=== PATIENT | male | born 1975 | race Caucasian/White ===

== ENCOUNTER 2017-12-07 07:08 | Emergency (ER) | payer BC, OTHER ==
[~2017-12-07] VITALS: Ht 185.4 cm; Wt 92.9 kg
[2017-12-07 07:11] VITALS: TEMP 36.7; Ht 185.4 cm; Wt 92.9 kg
--- NOTE | 2017-12-07 07:19 | EMERGENCY ROOM VISIT NOTE ---
ED Visit Note First contact with patient: 07:15 CHIEF COMPLAINT: Chest pain HISTORY OF PRESENTING ILLNESS: This is a 42-year-old male who presents to the emergency department with complaint of chest pain that started yesterday. Patient states that pain has been in the middle of his chest, he describes as a tightness, it is worse with exertion, better with rest, currently rates as 2/ 10. He did not take any medications for his symptoms. The patient states that the pain seemed to get better last night, but he woke up around 5 AM today still feeling unwell and having this chest pressure. He states that he began feeling fatigued and having nausea and some shortness of breath with exertion 2 days ago. He has also had some intermittent cold sweats at times. He also states that he has been burping a lot and feeling gassy. He saw his PCP yesterday evening, states that he had an EKG that was normal, but was told to go to the ER if his symptoms persisted. He states that he is usually fairly active, walks a lot on campus, and states that he started working out about a month ago and has been exercising at least 3 times a week without difficulty. He states that he has been extremely busy with work past few weeks due to the end of sem, as he is a professor of chemistry. He denies any symptoms of fevers or chills, URI symptoms or cough, headaches, dizziness or syncope, back pain, abdominal pain, vomiting, diarrhea, urinary symptoms, or unusual rash. He denies any recent travel or immobilization, injury, leg pain or swelling, or history of blood clots. His chest pain is not worse with taking a deep breath or lying flat. He denies any history of hypertension or hypercholesterolemia, he is not diabetic. He does not smoke or use tobacco products. He denies any family history of early cardiac disease or stroke. He does report a history of GERD, but states that this feels different. REVIEW OF SYSTEMS: A complete 10 point review of systems was reviewed with the patient with pertinent positives and negatives as per history of present illness. All else were negative. PAST MEDICAL HISTORY: GERD SOCIAL HISTORY: Lives at home with his . He is a [employer] professor. He denies tobacco use. ALLERGIES: Reviewed in chart. PHYSICAL EXAM: CONSTITUTIONAL: Pleasant and cooperative. No acute distress. Well appearing and well nourished. HEENT: Normocephalic, atraumatic. Pupils equal, round and reactive to light, EOMI. TMs normal. Pharynx normal. NECK: Supple, full active range of motion without discomfort. No cervical adenopathy. No JVD. RESPIRATORY: Clear to auscultation bilaterally with no wheezing, crackles, rhonchi or stridor. Equal expansion bilaterally. CARDIOVASCULAR: Regular rate and rhythm with no murmurs, rubs or gallops. Normal peripheral perfusion. No edema. GASTROINTESTINAL: Soft, nontender, nondistended. No palpable masses or HSM. Bowel sounds present in all quadrants. MUSCULOSKELETAL: Full range of motion of all joints without discomfort. INTEGUMENTARY: No rash or other significant dermatologic conditions noted. NEUROLOGIC: Alert and oriented X 4 with normal affect. Normal strength and sensation in all 4 extremities. No focal neurologic deficits noted. Normal speech. Normal gait observed. ED COURSE AND MEDICAL DECISION MAKING: CC: Patient presenting with complaint of chest pain DIFFERENTIAL DIAGNOSIS: Includes, but not limited to acute coronary syndrome, pulmonary embolism, aortic dissection, pneumothorax, pericarditis, anxiety, musculoskeletal pain, GERD, costochondritis, pneumonia, among others. INTERPRETATION OF LABS: No leukocytosis, no anemia, no significant electrolyte abnormalities, normal renal function, mildly elevated T bili, liver enzymes otherwise normal, normal lipase. Initial troponin is negative. Pro-BNP WNL. D -dimer is negative. Coagulation factors within normal limits. IMAGIN view chest x-ray reviewed by myself and radiologist and shows no active disease in the chest by my interpretation. EXERCISE STRESS ECHO: Interpretation Summary * Name: SHIRLEY MUNIZ Study Date: 12/07/2017 01:00 PM BP: 146/74 mmHg * Patient Location: C.EDB HR: 54 * : 1975 (M/d/yyyy) Gender: Male Height: 72 in * Age: 42 yrs Ethnicity: CA Weight: 204 lb * Ordering Physician: Sharon Brandt * Performed By: Robyn Lloyd RDCS * * Reason For Study: CHEST PAIN * BSA: 2.1 m2 * -- Conclusions -- * Left ventricular systolic function is normal. * Normal diastolic function * Diagnostic exercise echocardiogram without evidence of inducible ischemia Procedure Details * ECHOEX, CPT #[id number] * ECHO DOPPLER, CPT #[id number] * ECHO COLOR FLOW, CPT #[id number] Left Ventricular Findings with Stress * Diagnostic exercise echocardiogram without evidence of inducible ischemia Left Ventricle * The left ventricle is normal in size. * There is normal left ventricular wall thickness. * Ejection Fraction = 65-70%. * Left ventricular systolic function is normal. * Normal diastolic function * The left ventricular wall motion is normal at rest. Right Ventricle * The right ventricle is normal in size and function. * The right ventricular systolic function is normal as assessed by tricuspid annular plane systolic excursion (TAPSE) (normal >1.5 cm). Atria * The left atrial size is normal. * Right atrial size is normal. Mitral Valve * The mitral valve anatomy is normal. * There is trace mitral regurgitation. Tricuspid Valve * The tricuspid valve is not well visualized, but is grossly normal. * There is trace tricuspid regurgitation. Aortic Valve * The aortic valve is normal in structure and function. * The aortic valve is trileaflet. * No hemodynamically significant valvular aortic stenosis. * There is no significant aortic regurgitation. Pulmonic Valve * The pulmonic valve leaflets are thin and pliable; valve motion is normal. * Trace pulmonic valvular regurgitation. Great Vessels * The aortic root is normal size. Pericardium * There is no pericardial effusion. Stress Parameters * Baseline EKG was normal sinus with nonspecific ST and T-wave changes in inferolateral leads * With significant worsening of the T-wave inversions during exercise without significant ST segment depression * Rest heart rate was '54' BPM. * Rest blood pressure was '146/74' * Maximum heart rate achieved was 169 bpm. * Maximum heart rate was 95 % of maximum age-predicted heart rate. * Maximum blood pressure was '197/51' * Total exercise time was '9:35' * Maximum exercise MET level achieved was '11.00' METS * Maximum treadmill speed was '4.20' miles per hour. * Maximum treadmill elevation was '16.00'% grade. * Exercise was terminated due to 'Target heart rate achieved.' * No symptoms during exercise. Target heart rate achieved. Left Ventricular Findings with Stress * Baseline EKG was slightly abnormal There was significant T-wave inversion without overt ST segment depression at peak exertion Baseline echocardiographic images were normal There was normal augmentation of all segments without development of wall motion abnormalities at peak exertion Baseline blood pressure was high with normal blood pressure response to exercise No symptoms Osborn treadmill score: 9.5 (low risk) EKG: Shows normal sinus rhythm with sinus arrhythmia and a rate of 67 bpm, nonspecific T-wave abnormalities noted in the inferior leads by my interpretation. No previous EKG available for comparison. MEDICATION RECONCILIATION: I attest that I have personally reviewed the patient 's current medication list. INITIAL VITAL SIGNS REVIEW: I reviewed the patient's initial vital signs and interpret them as follows: T: Afebrile; BP: Hypertensive; HR: Within normal limits; RR: Within normal limits; Pulse Ox: Within normal limits on room air. Blood pressure screening: The patient was found to have an elevated blood pressure, which was felt to be situational. SUMMARY: Patient was evaluated at bedside, history and physical exam performed. Patient is alert and oriented, no acute distress, resting calmly in stretcher. Patient states that his chest pain is very minimal, rating only a 1-2/10, substernal and does not radiate. Heart sounds are normal, lungs are clear, normal peripheral perfusion with no edema. EKG was reviewed at bedside, noting normal sinus rhythm with no acute ischemic changes. Orders were placed at bedside for labs, UA, chest x-ray to evaluate for cardiopulmonary disease. Patient discussed with Dr. Patel, who agrees with my assessment and plan. Labs and imaging reviewed as above. Patient is low risk for PE by Wells criteria, d-dimer is negative Patient with heart score of 1, based off of exertional symptoms. Troponin is negative x2. I spoke with Dr. Han, meatcutter, who agrees with plans to do an exercise stress echo today for chest pain rule out. Stress echo results reviewed, normal with no evidence of ischemia. Patient reassessed multiple times throughout ED stay, he states that his chest pain remains gone, and he has been feeling well since the stress test. Patient was updated on all results and plan for discharge, he was encouraged to follow closely with his primary care provider. Patient was also given strict return precautions should his symptoms worsen, he verbalized understanding. Patient was discharged home from the ED in stable condition and ambulatory. Current/Historical Medications Scheduled Fiber (Fiber Adult Gummies 2 gm), 1 TAB PO BID Fluticasone Propionate (Nasal) (Flonase Allergy Relief ), 1 SPRAY XAVIER DAILY Allergies Coded Allergies: Codeine (Unverified Allergy, Unknown, nauseous, 12/07/17) Vital Signs Date Time Temp Pulse Resp B/P (MAP) Pulse Ox O2 Delivery O2 Flow Rate FiO2 12/07/17 16:04 58 18 124/74 97 12/07/17 14:20 82 18 134/82 97 Room Air 12/07/17 12:24 74 12/07/17 12:20 63 18 140/72 98 Room Air 12/07/17 10:33 106 16 158/97 94 Room Air 12/07/17 09:07 61 16 124/82 12/07/17 07:33 97 Room Air 12/07/17 07:33 97 Room Air 12/07/17 07:23 62 12/07/17 07:11 36.7 69 18 144/86 99 Room Air Laboratory Results 12/07/17 07:25 Red Blood Count 4.95, Mean Corpuscular Volume 91.1, Mean Corpuscular Hemoglobin 32.3, Mean Corpuscular Hemoglobin Concent 35.5, Mean Platelet Volume 9.5, Neutrophils (%) (Auto) 58.3, Lymphocytes (%) (Auto) 31.2, Monocytes (%) (Auto) 8.7, Eosinophils (%) (Auto) 1.1, Basophils (%) (Auto) 0.5, Neutrophils # (Auto) 3.61, Lymphocytes # (Auto) 1.93, Monocytes # (Auto) 0.54, Eosinophils # (Auto) 0.07, Basophils # (Auto) 0.03 12/07/17 07:25 Test 12/07/17 07:25 12/07/17 10:57 White Blood Count 6.19 K/uL (4.8-10.8) Red Blood Count 4.95 M/uL (4.7-6.1) Hemoglobin 16.0 g/dL (14.0-18.0) Hematocrit 45.1 % (42-52) Mean Corpuscular Volume 91.1 fL (80-100) Mean Corpuscular Hemoglobin 32.3 pg (25-34) Mean Corpuscular Hemoglobin Concent 35.5 g/dl (32-36) Platelet Count 228 K/uL (130-400) Mean Platelet Volume 9.5 fL (7.4-10.4) Neutrophils (%) (Auto) 58.3 % Lymphocytes (%) (Auto) 31.2 % Monocytes (%) (Auto) 8.7 % Eosinophils (%) (Auto) 1.1 % Basophils (%) (Auto) 0.5 % Neutrophils # (Auto) 3.61 K/uL (1.4-6.5) Lymphocytes # (Auto) 1.93 K/uL (1.2-3.4) Monocytes # (Auto) 0.54 K/uL (0.11-0.59) Eosinophils # (Auto) 0.07 K/uL (0-0.5) Basophils # (Auto) 0.03 K/uL (0-0.2) RDW Standard Deviation 42.1 fL (36.4-46.3) RDW Coefficient of Variation 12.7 % (11.5-14.5) Immature Granulocyte % (Auto) 0.2 % Immature Granulocyte # (Auto) 0.01 K/uL (0.00-0.02) Prothrombin Time 10.6 SECONDS (9.0-12.0) Prothromb Time International Ratio 1.0 (0.9-1.1) Activated Partial Thromboplast Time 26.4 SECONDS (21.0-31.0) Partial Thromboplastin Ratio 1.0 D-Dimer 220 ug/L FEU (0-500) Anion Gap 6.0 mmol/L (3-11) Est Creatinine Clear Calc Drug Dose 105.5 ml/min Estimated GFR () 103.9 Estimated GFR (Non- 89.6 BUN/Creatinine Ratio 7.4 (10-20) Calcium Level 9.3 mg/dl (8.5-10.1) Total Bilirubin 1.1 mg/dl (0.2-1) Direct Bilirubin 0.2 mg/dl (0-0.2) Aspartate Amino Transf (AST/SGOT) 19 U/L (15-37) Alanine Aminotransferase (ALT/SGPT) 30 U/L (12-78) Alkaline Phosphatase 82 U/L (45-117) Pro-B-Type Natriuretic Peptide 48 pg/ml (0-450) Total Protein 8.6 gm/dl (6.4-8.2) Albumin 4.5 gm/dl (3.4-5.0) Lipase 64 U/L (73-393) Troponin I < 0.015 ng/ml (0-0.045) Medications Administered Medications (Trade) Dose Ordered Sig/Wilda Route Start Time Stop Time Status Last Admin Dose Admin Aspirin (Aspirin Chew) 324 mg NOW STAT PO 12/07/17 07:37 12/07/17 07:41 DC 12/07/17 07:45 324 MG Departure Information Impression Primary Impression: Non-cardiac chest pain Dispostion Home / Self-Care Condition GOOD Referrals No Doctor, Assigned (PCP) Patient Instructions ED Chest Pain NonCardiac, Exercise Stress Test, [facility] Additional Instructions You have been treated in the Emergency Department for chest pain. Laboratory results and imaging studies have ruled out any emergent causes for your symptoms which would warrant admission or surgery. Your exercise stress echocardiogram today is normal. For pain control, you can use the following glok-iop-lckezkr medicines (if >12 yo): - Regular strength (325mg/tab) Tylenol (acetaminophen) 2 tabs every 4-6 hours as needed. Do not exceed 10 tablets in a 24 hour period. Avoid taking more than 3000 mg of Tylenol per day. This includes any other sources of acetaminophen you may take on a regular basis. - Regular strength (200 mg/tab) Advil (ibuprofen) 3 tabs every 6-8 hours as needed. Do not exceed a dose of 2400 mg per day. Drink plenty of fluids to stay well hydrated. Please follow-up with your Primary Care Provider in the next few days for recheck. Return to the emergency department for severe worsening chest or back pain, worsening shortness of breath or inability to catch your breath, worsening nausea/vomiting, vomiting blood, fevers > 101.5, severe dizziness or passing out , or any other concerns. Work Instructions Return To Work: 2 days
[2017-12-07 07:33] VITALS: O2SAT 97
[2017-12-07 07:37] LABS: BASO % 0.5 %; BASO ABS # 0.03 K/uL (0-0.2); EOS % 1.1 %; EOS ABS # 0.07 K/uL (0-0.5); HEMATOCRIT 45.1 % (42-52); IG# 0.01 K/uL (0.00-0.02); LYMPH % 31.2 %; LYMPH ABS # 1.93 K/uL (1.2-3.4); MEAN CELL VOLUME 91.1 fL (80-100); MEAN CORPUSCULAR HEMOGLOBIN 32.3 pg (25-34); MEAN CORPUSCULAR HGB CONC 35.5 g/dl (32-36); MEAN PLATELET VOLUME 9.5 fL (7.4-10.4); MONO % 8.7 %; MONO ABS # 0.54 K/uL (0.11-0.59); NEUT % 58.3 %; NEUT ABS # 3.61 K/uL (1.4-6.5); PLATELET COUNT 228 K/uL (130-400); RED CELL DISTRIBUTION WIDTH CV 12.7 % (11.5-14.5); RED CELL DISTRIBUTION WIDTH SD 42.1 fL (36.4-46.3); WHITE BLOOD COUNT 6.19 K/uL (4.8-10.8)
[2017-12-07] MEDS ORDERED: ASPIRIN 81 MG CHEW PO STA (07:37)
[2017-12-07 07:46] LABS: PTT PATIENT 26.4 SECONDS (21.0-31.0)
[2017-12-07] MEDS ORDERED: FLUT1SPR12 NAE (07:52)
[2017-12-07] MEDS ORDERED: FIBE1CHW8 PO (07:52)
[2017-12-07 07:53] LABS: ALBUMIN 4.5 gm/dl (3.4-5.0); ALT/SGPT 30 U/L (12-78); AST/SGOT 19 U/L (15-37); BLOOD UREA NITROGEN 8 mg/dl (7-18); CALCIUM 9.3 mg/dl (8.5-10.1); CARBON DIOXIDE 26 mmol/L (21-32); CREATININE 1.02 mg/dl (0.60-1.40); GLUCOSE 92 mg/dl (70-99); LIPASE 64 U/L (73-393); POTASSIUM 3.7 mmol/L (3.5-5.1); SODIUM 139 mmol/L (136-145)
[2017-12-07 07:59] LABS: ALKALINE PHOSPHATASE 82 U/L (45-117); TOTAL PROTEIN 8.6 gm/dl (6.4-8.2)
--- NOTE | 2017-12-07 08:53 | DIAGNOSTIC IMAGING REPORT ---
SINGLE VIEW CHEST CLINICAL HISTORY: Atypical chest pain. FINDINGS: An AP, portable, upright chest radiograph is compared to study dated 07/20/2016. The cardiomediastinal silhouette is unremarkable. The lungs and pleural spaces are clear. No pneumothorax is seen. The bony thorax is grossly intact. IMPRESSION: No active disease in the chest. Electronically signed by: Iglesia Austin M.D. 12/07/2017 7:30 AM Dictated Date/Time: 12/07/2017 7:30 AM
--- NOTE | 2017-12-07 14:40 | EXERCISE STRESS ECHO ---
*NOTICE TO RECEIVING CONSTITUTION PARTY AGENCY This information is strictly Confidential and protected under [place] law. [place] law prohibits you from making any further disclosure of this information unless further disclosure is expressly permitted by the written consent of the person to whom it pertains or is authorized by law. A general authorization for the release of medical or other information is not sufficient for this purpose. Hospital accepts no responsibility if the information is made available to any other person, INCLUDING THE PATIENT. Interpretation Summary * Name: SHIRLEY MUNIZ Study Date: 12/07/2017 01:00 PM BP: 146/74 mmHg * Patient Location: .ED HR: 54 * : 1975 (M/d/yyyy) Gender: Male Height: 72 in * Age: 42 yrs Ethnicity: CA Weight: 204 lb * Ordering Physician: Sharon Brandt * Performed By: Robyn Lloyd RDCS * * Reason For Study: CHEST PAIN * BSA: 2.1 m2 * -- Conclusions -- * Left ventricular systolic function is normal. * Normal diastolic function * Diagnostic exercise echocardiogram without evidence of inducible ischemia Procedure Details * ECHOEX, CPT #[id number] * ECHO DOPPLER, CPT #[id number] * ECHO COLOR FLOW, CPT #[id number] Left Ventricular Findings with Stress * Diagnostic exercise echocardiogram without evidence of inducible ischemia Left Ventricle * The left ventricle is normal in size. * There is normal left ventricular wall thickness. * Ejection Fraction = 65-70%. * Left ventricular systolic function is normal. * Normal diastolic function * The left ventricular wall motion is normal at rest. Right Ventricle * The right ventricle is normal in size and function. * The right ventricular systolic function is normal as assessed by tricuspid annular plane systolic excursion (TAPSE) (normal >1.5 cm). Atria * The left atrial size is normal. * Right atrial size is normal. Mitral Valve * The mitral valve anatomy is normal. * There is trace mitral regurgitation. Tricuspid Valve * The tricuspid valve is not well visualized, but is grossly normal. * There is trace tricuspid regurgitation. Aortic Valve * The aortic valve is normal in structure and function. * The aortic valve is trileaflet. * No hemodynamically significant valvular aortic stenosis. * There is no significant aortic regurgitation. Pulmonic Valve * The pulmonic valve leaflets are thin and pliable; valve motion is normal. * Trace pulmonic valvular regurgitation. Great Vessels * The aortic root is normal size. Pericardium * There is no pericardial effusion. Stress Parameters * Baseline EKG was normal sinus with nonspecific ST and T-wave changes in inferolateral leads * With significant worsening of the T-wave inversions during exercise without significant ST segment depression * Rest heart rate was '54' BPM. * Rest blood pressure was '146/74' * Maximum heart rate achieved was 169 bpm. * Maximum heart rate was 95 % of maximum age-predicted heart rate. * Maximum blood pressure was '197/51' * Total exercise time was '9:35' * Maximum exercise MET level achieved was '11.00' METS * Maximum treadmill speed was '4.20' miles per hour. * Maximum treadmill elevation was '16.00'% grade. * Exercise was terminated due to 'Target heart rate achieved.' * No symptoms during exercise. Target heart rate achieved. Left Ventricular Findings with Stress * Baseline EKG was slightly abnormal There was significant T-wave inversion without overt ST segment depression at peak exertion Baseline echocardiographic images were normal There was normal augmentation of all segments without development of wall motion abnormalities at peak exertion Baseline blood pressure was high with normal blood pressure response to exercise No symptoms Osborn treadmill score: 9.5 (low risk) MMode 2D Measurements and Calculations IVSd 1.2 cm IVSs 1.6 cm LVIDd 5.0 cm LVIDs 3.1 cm LVPWd 1.1 cm LVPWs 1.5 cm IVS/LVPW 1.1 FS 38.2 % EDV(Teich) 120.1 ml ESV(Teich) 38.2 ml EF(Teich) 68.2 % EDV(cubed) 127.5 ml ESV(cubed) 30.0 ml EF(cubed) 76.4 % % IVS thick 40.1 % % LVPW thick 39.5 % LV mass(C)d 214.9 grams LV mass(C)dI 100.0 grams/m\S\2 LV mass(C)s 177.9 grams LV mass(C)sI 82.8 grams/m\S\2 SV(Teich) 81.9 ml SI(Teich) 38.1 ml/m\S\2 SV(cubed) 97.5 ml SI(cubed) 45.4 ml/m\S\2 ACS 1.7 cm LA dimension 3.7 cm asc Aorta Diam 2.8 cm LVOT diam 2.0 cm LVOT area 3.0 cm\S\2 LVAd ap4 37.6 cm\S\2 LVLd ap4 8.8 cm EDV(MOD-sp4) 130.7 ml EDV(sp4-el) 135.7 ml LVAs ap4 17.6 cm\S\2 LVLs ap4 6.7 cm ESV(MOD-sp4) 42.7 ml ESV(sp4-el) 39.3 ml EF(MOD-sp4) 67.3 % EF(sp4-el) 71.1 % LVAd ap2 33.7 cm\S\2 LVLd ap2 8.7 cm EDV(MOD-sp2) 106.9 ml EDV(sp2-el) 110.0 ml LVAs ap2 15.1 cm\S\2 LVLs ap2 6.1 cm ESV(MOD-sp2) 32.5 ml ESV(sp2-el) 32.1 ml EF(MOD-sp2) 69.6 % EF(sp2-el) 70.8 % LVLd %diff -1.08 % EDV(MOD-bp) 119.7 ml LVLs %diff -10.91 % ESV(MOD-bp) 38.8 ml EF(MOD-bp) 67.6 % SV(MOD-sp4) 87.9 ml SI(MOD-sp4) 40.9 ml/m\S\2 SV(MOD-sp2) 74.5 ml SI(MOD-sp2) 34.7 ml/m\S\2 SV(MOD-bp) 81.0 ml SI(MOD-bp) 37.7 ml/m\S\2 SV(sp4-el) 96.5 ml SI(sp4-el) 44.9 ml/m\S\2 SV(sp2-el) 77.9 ml SI(sp2-el) 36.3 ml/m\S\2 Doppler Measurements and Calculations MV E max jamie 60.9 cm/sec MV A max jamie 45.8 cm/sec MV E/A 1.3 MV dec time 0.15 sec Ao V2 max 129.4 cm/sec Ao max PG 6.7 mmHg Ao max PG (full) 2.7 mmHg LUCILLE(V,A) 2.4 cm\S\2 LUCILLE(V,D) 2.4 cm\S\2 LV V1 max PG 4.0 mmHg LV V1 max 100.5 cm/sec PA V2 max 72.3 cm/sec PA max PG 2.1 mmHg PI end-d jamie 97.9 cm/sec
[2017-12-07 16:04] VITALS: BP 124/74; PULSE 58; O2SAT 97
== END 2017-12-07 16:14 | disposition home or self-care (01) ==
LOC: C.EDB 07:10
DX: R07.89 Other chest pain (principal); R06.02 Shortness of breath; Z88.5 Allergy status to narcotic agent

== ENCOUNTER 2018-03-25 22:12 | Inpatient (IN) | payer OTHER ==
[~2018-03-25] VITALS: Ht 185.4 cm; Wt 86.8 kg
[~2018-03-25 22:12] MED LIST: FIBE1CHW8 PO; FLUT1SPR12 NAE
[2018-03-25] MEDS ORDERED: DILTIAZEM HCL 5 MG/ML 5 ML VIAL IV STA ×2 (22:24→23:28)
[2018-03-25] MEDS ORDERED: SODIUM CHLORIDE 0.9% 1000ML 1,000 ML IV STA (22:24)
[2018-03-25] MEDS ORDERED: DILTIAZEM BOLUS / DRIP IV STA (22:31)
[2018-03-25] MEDS ORDERED: PRT/20 PO (22:42)
[2018-03-25] MEDS ORDERED: DILTIAZEM HCL INJ 125 MG in DEXTROSE 5% 100ML IV PRN (22:45)
[2018-03-25 22:50] LABS: BASO % 0.4 %; BASO ABS # 0.04 K/uL (0-0.2); EOS % 3.8 %; EOS ABS # 0.34 K/uL (0-0.5); HEMATOCRIT 45.9 % (42-52); HEMOGLOBIN 16.7 g/dL (14.0-18.0); IG# 0.02 K/uL (0.00-0.02); LYMPH ABS # 4.02 K/uL (1.2-3.4); MEAN CELL VOLUME 90.2 fL (80-100); MEAN CORPUSCULAR HEMOGLOBIN 32.8 pg (25-34); MEAN CORPUSCULAR HGB CONC 36.4 g/dl (32-36); MEAN PLATELET VOLUME 10.6 fL (7.4-10.4); MONO % 11.2 %; NEUT % 39.4 %; NEUT ABS # 3.52 K/uL (1.4-6.5); PLATELET COUNT 221 K/uL (130-400); RED CELL DISTRIBUTION WIDTH SD 39.6 fL (36.4-46.3); WHITE BLOOD COUNT 8.94 K/uL (4.8-10.8)
[2018-03-25 23:01] LABS: PTT PATIENT 26.3 SECONDS (21.0-31.0)
--- NOTE | 2018-03-25 23:04 | DIAGNOSTIC IMAGING REPORT ---
CHEST ONE VIEW PORTABLE CLINICAL HISTORY: Chest pain. COMPARISON STUDY: Chest radiograph December 07, 2017. FINDINGS: Lung volumes are normal. There is no pneumothorax or pleural effusion. There is no consolidation or evidence for pulmonary edema. Cardiac size is normal. Mediastinal contours are normal. The appearance of the chest is unchanged. IMPRESSION: No acute cardiopulmonary findings. Electronically signed by: Amador Vernon M.D. 03/25/2018 11:03 PM Dictated Date/Time: 03/25/2018 11:02 PM
[2018-03-25 23:19] LABS: ALBUMIN 4.7 gm/dl (3.4-5.0); ALKALINE PHOSPHATASE 97 U/L (45-117); ALT/SGPT 23 U/L (12-78); AST/SGOT 22 U/L (15-37); BLOOD UREA NITROGEN 8 mg/dl (7-18); CALCIUM 9.5 mg/dl (8.5-10.1); CARBON DIOXIDE 24 mmol/L (21-32); GLUCOSE 97 mg/dl (70-99); LIPASE 74 U/L (73-393); POTASSIUM 3.1 mmol/L (3.5-5.1); SODIUM 135 mmol/L (136-145); TOTAL PROTEIN 8.6 gm/dl (6.4-8.2)
[2018-03-25] MEDS ORDERED: POTASSIUM CHLORIDE 10 MEQ TABCR PO STA (23:28)
[2018-03-25] MEDS ORDERED: DILTIAZEM HCL 30 MG TAB PO STA (23:40)
[2018-03-26] VITALS (7 sets, daily range): BP systolic 109–132; BP diastolic 64–80; PULSE 53–66; TEMP 36.4–37.1; O2SAT 96–100; Ht 185.4 cm; Wt 86.8 kg
--- NOTE | 2018-03-26 00:35 | EMERGENCY ROOM VISIT NOTE ---
History First contact with patient: 22:17 Chief Complaint: TACHYCARDIA Stated Complaint: HEART RATE HIGH AND VARIABLE Nursing Triage Summary: A fib with RVR History of Present Illness The patient is a 42 year old male who presents to the Emergency Room with complaints of palpitations for the past few hours. Patient states a few months ago he had a similar episode. Patient states earlier this year he had a normal stress echo. Patient's chancellor is Dr. Wilcox. Patient was told by his chancellor to double up on his Protonix as his chest pains most likely is from reflux. Patient denies prior history of atrial fibrillation or other heart dysrhythmias. Patient feels slightly short of breath. Patient denies chest pain, fever, chills, cough, congestion, abdominal pain, recent illness excessive caffeine use. Patient normally has 1 cup of coffee a day. He states he has been underneath more stress lately. He has not been sleeping well. No alcohol or drug use. Patient denies history of blood pressure cholesterol or diabetes. Patient states last time when he saw his family care doctor his TSH was slightly elevated. Review of Systems An 10 system review of systems was completed with positives and pertinent negatives listed in the HPI. Past Medical/Surgical History Medical Problems: (1) New onset atrial fibrillation GERD Social History Smoking Status: Never Smoker Smokeless Tobacco Use: No Alcohol Use: none Drug Use: none Marital Status: Housing Status: lives with family Occupation Status: employed Current/Historical Medications Scheduled Fluticasone Propionate (Nasal) (Flonase Allergy Relief ), 1 SPRAY XAVIER DAILY Pantoprazole (Protonix), 20 MG PO BID Physical Exam Vital Signs Date Time Temp Pulse Resp B/P (MAP) Pulse Ox O2 Delivery O2 Flow Rate FiO2 03/25/18 23:46 107 12 128/85 99 Room Air 03/25/18 23:40 108 03/25/18 23:32 89 11 98 03/25/18 23:31 128/68 03/25/18 23:17 100 5 97 03/25/18 23:16 140/75 03/25/18 23:02 136 20 03/25/18 23:01 137/77 03/25/18 23:00 118 18 137/77 100 Room Air 03/25/18 22:59 108 18 148/110 99 Room Air 03/25/18 22:58 148/110 03/25/18 22:51 122 99 03/25/18 22:48 99 Room Air 03/25/18 22:47 112 19 100 03/25/18 22:42 98 14 99 03/25/18 22:33 134/82 99 03/25/18 22:30 99 Room Air 03/25/18 22:27 146 14 03/25/18 22:25 178 03/25/18 22:14 36.8 88 18 144/85 99 Room Air Physical Exam VITALS: Vitals are noted on the nurse's note and reviewed by myself. Vital signs tachycardic. GENERAL: Pleasant male, in no acute distress, nondiaphoretic, well-developed well-nourished. SKIN: The skin was without rashes, erythema, edema, or bruising. There is no tenting of the skin. Capillary reflex less than 2 seconds. HEAD: Normocephalic atraumatic. EARS: External auditory canals clear, tympanic membranes pearly ramos without erythema or effusion bilaterally. EYES: Pupils equal round and reactive to light and accommodation. Conjunctivae without injection, sclerae without icterus. Extraocular movements intact. NOSE: Patent, turbinates without inflammation or discharge. MOUTH: Mucous membranes moist. Pharynx without erythema or exudate. Uvula midline. Airway patent. Tongue does not deviate. NECK: Supple without nuchal rigidity. No lymphadenopathy. No thyromegaly. Cervical spine is nontender. No JVD. HEART: Tachycardic irregularly irregular LUNGS: Clear to auscultation bilaterally without wheezes, rales or rhonchi. No retractions or accessory muscle use. ABDOMEN: Positive bowel sounds x 4. Normal tympanic percussion. Soft, nontender, without masses or organomegaly. Sandhu sign negative. No guarding or rebound tenderness. No CVA tenderness MUSCULOSKELETAL: No muscle atrophy, erythema, or edema noted. NEURO: Patient was alert and oriented to person place and time. Normal sensation to light and sharp touch. No focal neurological deficits. Medical Decision & Procedures Laboratory Results 03/25/18 22:30 Red Blood Count 5.09, Mean Corpuscular Volume 90.2, Mean Corpuscular Hemoglobin 32.8, Mean Corpuscular Hemoglobin Concent 36.4, Mean Platelet Volume 10.6, Neutrophils (%) (Auto) 39.4, Lymphocytes (%) (Auto) 45.0, Monocytes (%) (Auto) 11.2, Eosinophils (%) (Auto) 3.8, Basophils (%) (Auto) 0.4, Neutrophils # (Auto ) 3.52, Lymphocytes # (Auto) 4.02, Monocytes # (Auto) 1.00, Eosinophils # (Auto ) 0.34, Basophils # (Auto) 0.04 03/25/18 22:30 Test 03/25/18 22:30 White Blood Count 8.94 K/uL (4.8-10.8) Red Blood Count 5.09 M/uL (4.7-6.1) Hemoglobin 16.7 g/dL (14.0-18.0) Hematocrit 45.9 % (42-52) Mean Corpuscular Volume 90.2 fL (80-100) Mean Corpuscular Hemoglobin 32.8 pg (25-34) Mean Corpuscular Hemoglobin Concent 36.4 g/dl (32-36) Platelet Count 221 K/uL (130-400) Mean Platelet Volume 10.6 fL (7.4-10.4) Neutrophils (%) (Auto) 39.4 % Lymphocytes (%) (Auto) 45.0 % Monocytes (%) (Auto) 11.2 % Eosinophils (%) (Auto) 3.8 % Basophils (%) (Auto) 0.4 % Neutrophils # (Auto) 3.52 K/uL (1.4-6.5) Lymphocytes # (Auto) 4.02 K/uL (1.2-3.4) Monocytes # (Auto) 1.00 K/uL (0.11-0.59) Eosinophils # (Auto) 0.34 K/uL (0-0.5) Basophils # (Auto) 0.04 K/uL (0-0.2) RDW Standard Deviation 39.6 fL (36.4-46.3) RDW Coefficient of Variation 12.0 % (11.5-14.5) Immature Granulocyte % (Auto) 0.2 % Immature Granulocyte # (Auto) 0.02 K/uL (0.00-0.02) Prothrombin Time 10.7 SECONDS (9.0-12.0) Prothromb Time International Ratio 1.0 (0.9-1.1) Activated Partial Thromboplast Time 26.3 SECONDS (21.0-31.0) Partial Thromboplastin Ratio 1.0 Anion Gap 11.0 mmol/L (3-11) Est Creatinine Clear Calc Drug Dose 107.6 ml/min Estimated GFR () 106.4 Estimated GFR (Non- 91.8 BUN/Creatinine Ratio 8.3 (10-20) Calcium Level 9.5 mg/dl (8.5-10.1) Magnesium Level 2.0 mg/dl (1.8-2.4) Total Bilirubin 0.8 mg/dl (0.2-1) Direct Bilirubin 0.2 mg/dl (0-0.2) Aspartate Amino Transf (AST/SGOT) 22 U/L (15-37) Alanine Aminotransferase (ALT/SGPT) 23 U/L (12-78) Alkaline Phosphatase 97 U/L (45-117) Troponin I < 0.015 ng/ml (0-0.045) Total Protein 8.6 gm/dl (6.4-8.2) Albumin 4.7 gm/dl (3.4-5.0) Lipase 74 U/L (73-393) Thyroid Stimulating Hormone (TSH) 24.700 uIu/ml (0.300-4.500) Free Thyroxine 1.27 ng/dl (0.80-1.60) Medications Administered Medications (Trade) Dose Ordered Sig/Wilda Route Start Time Stop Time Status Last Admin Dose Admin Diltiazem HCl (Cardizem Inj) 20 mg NOW STAT IV 03/25/18 22:24 03/25/18 22:26 DC 03/25/18 22:37 20 MG Sodium Chloride 1,000 ml @ 999 mls/hr Q1H1M STAT IV 03/25/18 22:24 03/25/18 23:24 DC 03/25/18 22:37 999 MLS/HR Diltiazem HCl 125 mg/Dextrose 125 ml @ 0 mls/hr Q0M PRN IV 03/25/18 22:45 03/25/18 23:34 DC 03/25/18 22:42 10 MLS/HR Diltiazem HCl (Cardizem Inj) 25 mg NOW STAT IV 03/25/18 23:28 03/25/18 23:29 DC 03/25/18 23:34 25 MG Potassium Chloride (Klor-Con M10) 40 meq NOW STAT PO 03/25/18 23:28 03/25/18 23:29 DC 03/25/18 23:36 40 MEQ Diltiazem HCl (Cardizem Tab) 60 mg NOW STAT PO 03/25/18 23:40 03/25/18 23:41 DC 03/26/18 00:21 60 MG ED Course Prior records/ancillary studies reviewed. Triage Nursing notes reviewed. Additional history obtained from family. The patient's history was concerning for palpitations. Differential diagnosis: Etiologies such as premature contractions, electrolyte abnormality, cardiac dysrhythmia, thyroid dysfunction, pulmonary embolism, infection, gastrointestinal, as well as others were entertained. Physical examination: Benign as above. ER treatment provided: Cardizem with drip, IV fluids, potassium On reassessment the patient felt better. Diagnostic interpretation by me: Cardiac monitoring revealed A. fib with RVR The electrocardiogram was irregularly irregular with rate of 159, diffuse ST depression in the lateral leads most likely rate dependent, impression atrial fibrillation with RVR interpreted by myself. Repeat EKG shows A. fib with RVR with rate of 110 with resolution of the ST depressions The labs revealed elevated TSH. Normal T4. Hypokalemia this is replaced orally. Negative troponin Imaging studies: Chest x-ray as above. [~ rep ct add3]] CHEST ONE VIEW PORTABLE CLINICAL HISTORY: Chest pain. COMPARISON STUDY: Chest radiograph December 07, 2017. FINDINGS: Lung volumes are normal. There is no pneumothorax or pleural effusion. There is no consolidation or evidence for pulmonary edema. Cardiac size is normal. Mediastinal contours are normal. The appearance of the chest is unchanged. IMPRESSION: No acute cardiopulmonary findings. Electronically signed by: Amador Vernon M.D. *NOTICE TO RECEIVING LIBERTARIAN AGENCY This information is strictly Confidential and protected under [place] law. [place] law prohibits you from making any further disclosure of this information unless further disclosure is expressly permitted by the written consent of the person to whom it pertains or is authorized by law. A general authorization for the release of medical or other information is not sufficient for this purpose. Hospital accepts no responsibility if the information is made available to any other person, INCLUDING THE PATIENT. Interpretation Summary Name: SHIRLEY MUNIZ Study Date: 12/07/2017 01:00 PM BP: 146/74 mmHg Patient Location: C.EDB HR: 54 : 1975 (M/d/yyyy) Gender: Male Height: 72 in Age: 42 yrs Ethnicity: [place] Weight: 204 lb Ordering Physician: Sharon Brandt Performed By: [facility] Reason For Study: CHEST PAIN BSA: 2.1 m2 -- Conclusions -- Left ventricular systolic function is normal. Normal diastolic function Diagnostic exercise echocardiogram without evidence of inducible ischemia Procedure Details ECHOEX, CPT #[id number] ECHO DOPPLER, CPT #[id number] ECHO COLOR FLOW, CPT #[id number] Left Ventricular Findings with Stress Diagnostic exercise echocardiogram without evidence of inducible ischemia Left Ventricle The left ventricle is normal in size. There is normal left ventricular wall thickness. Ejection Fraction = 65-70%. Left ventricular systolic function is normal. Normal diastolic function The left ventricular wall motion is normal at rest. Right Ventricle The right ventricle is normal in size and function. The right ventricular systolic function is normal as assessed by tricuspid annular plane systolic excursion (TAPSE) (normal >1.5 cm). Atria The left atrial size is normal. Right atrial size is normal. Mitral Valve The mitral valve anatomy is normal. There is trace mitral regurgitation. Tricuspid Valve The tricuspid valve is not well visualized, but is grossly normal. There is trace tricuspid regurgitation. Aortic Valve The aortic valve is normal in structure and function. The aortic valve is trileaflet. No hemodynamically significant valvular aortic stenosis. There is no significant aortic regurgitation. Pulmonic Valve The pulmonic valve leaflets are thin and pliable; valve motion is normal. Trace pulmonic valvular regurgitation. Great Vessels The aortic root is normal size. Pericardium There is no pericardial effusion. Stress Parameters Baseline EKG was normal sinus with nonspecific ST and T-wave changes in inferolateral leads With significant worsening of the T-wave inversions during exercise without significant ST segment depression Rest heart rate was '54' BPM. Rest blood pressure was '146/74' Maximum heart rate achieved was 169 bpm. Maximum heart rate was 95 % of maximum age-predicted heart rate. Maximum blood pressure was '197/51' Total exercise time was '9:35' Maximum exercise MET level achieved was '11.00' METS Maximum treadmill speed was '4.20' miles per hour. Maximum treadmill elevation was '16.00'% grade. Exercise was terminated due to 'Target heart rate achieved.' No symptoms during exercise. Target heart rate achieved. Left Ventricular Findings with Stress Baseline EKG was slightly abnormal There was significant T-wave inversion without overt ST segment depression at peak exertion Baseline echocardiographic images were normal There was normal augmentation of all segments without development of wall motion abnormalities at peak exertion Baseline blood pressure was high with normal blood pressure response to exercise No symptoms Osborn treadmill score: 9.5 (low risk) [id number] risk stratification score for estimation of stroke risk for nonvalvular atrial fibrillation in adults is 0 HEART SCORE: Hx: high/mod/low suspicion: 0 ECG: ST depression/nonspecific changes/normal: 2 Age: Greater than 65/45-64/less than 45: 0 Risk factors: (Hypertension, hyperlipidemia, diabetes, coronary disease, tobacco use, cocaine use): 0 Troponin: Greater than 2 times normal limits/1-2 times normal limits/normal: 0 Total: 2 Consultation: A consultation was placed with Dr. Berman, hospitalist. The case was discussed and diagnostics were reviewed. The patient was evaluated in the ER for further treatment. This appears to be consistent with A. fib with RVR with hypokalemia and elevated TSH. Patient was given 2 boluses of Cardizem. He was still tachycardic. A drip was initiated. He was given potassium. Medicine was consulted. Patient had a recent stress echo that was normal. Patient denies family history of heart disease or dysrhythmias. Patient was neurovascularly and neurologically intact. Patient had great improvement after being medicated as above. His chads 2 score was 0. He is agreeable treatment plan of evaluation by medicine for possible admission. By the evaluation outlined above emergent etiologies such as pulmonary embolism, infection, as well as others were deemed relatively unlikely. The pt informed about the findings as listed above. All questions were answered and pleased with the treatment. Case reviewed with my attending The chart was completed utilizing [employer] voice recognition software. Grammatical errors, random word insertions, pronoun errors, and incomplete sentences are an occassional consequence of this system due to software limitations, ambient noise, and hardware issues. Any formal questions or concerns about the content, text, or information contained within the body of this dictation should be directly addressed to the physician law office assistant for clarification. Medical Decision as above Medication Reconcilliation Current Medication List: was personally reviewed by me Blood Pressure Screening Patient's blood pressure: Normal blood pressure Impression Primary Impression: Atrial fibrillation with RVR Additional Impressions: Hypokalemia Thyroid function test abnormal Critical Care I have personally spent greater than 30 minutes of critical care time in the direct management of this patient. This includes bedside care, interpretation of diagnostic studies, and testing, discussion with consultants, patient, and family members, and other required patient management activities. This 30 minutes is in excess of all separately billable procedures. Departure Information Dispostion Being Evaluated By Hospitalist Condition GOOD Referrals Radha Calhoun M.D. (PCP) Patient Instructions My [facility] Problem Qualifiers
[2018-03-26] MEDS ORDERED: ACETAMINOPHEN 325 MG TAB PO PRN (00:45)
[2018-03-26] MEDS ORDERED: ONDANSETRON INJ 2 MG/ML 2 ML VIAL IV PRN (00:45)
[2018-03-26] MEDS ORDERED: DILTIAZEM HCL 5 MG/ML 5 ML VIAL IV PRN (01:00)
--- NOTE | 2018-03-26 01:14 | History and Physical ---
History & Physical Date & Time of Service: Mar 26, 2018 at 00:53 Chief Complaint: Heart Rate High And Variable Primary Care Physician: Radha Calhoun M.D. History of Present Illness Source: patient, family The patient is a 42-year-old male with a past medical history of GERD that presents with palpitations that started this evening. The patient states that he went to sleep around 715, and awoke at approximately 830 with the sensation that his heart was racing. The patient wears an eye watch and states that his heart rate was approximately 160 where his usual resting heart rate is around 60 bpm. The patient subsequently had 2 bowel movements within the next 30 minutes with a sustained elevated heart rate at which point he decided to come to the emergency department. The patient denies any chest pain or shortness of breath with the episode. he does appreciate that he had a short episode similar to this in February, but attributed it to having 3 cups of coffee causing his heart rate to be elevated. The patient also states that he was previously worked up by his family doctor for an elevated thyroid hormone, and that he was scheduled to follow-up as an outpatient in the coming weeks for further workup. In November the patient was worked up for complaints of shortness of breath and chest pain with an echocardiogram an cardiac stress test both of which were negative. Including due to other complaints including cough, sore throat, and reflux symptoms his chest discomfort was believed to be due to reflux. The patient was started on Protonix but continued to have similar chest discomfort and was later referred to Dr. Galdamez of cardiology, who increased his dose of Protonix and believed that symptoms continue to be due to GERD. At this time the patient denies any complaints of chest discomfort and only complains of palpitations. Since increasing the dose of his Protonix the patient has not had any repeat episodes of chest pain. The patient also reports a weight loss of approximately 20 pounds since the start of November, losing almost 1 pound per week. He attributes his weight loss to lifestyle changes including diet and exercise that were made to treat his reflux symptoms. Past Medical/Surgical History Medical Problems: (1) New onset atrial fibrillation (2) Non-cardiac chest pain Family History Noncontributory Social History Smoking Status: Never Smoker Smokeless Tobacco Use: No Alcohol Use: none Drug Use: none Marital Status: Occupational Status: employed Immunizations History of Influenza Vaccine: Unknown History of Tetanus Vaccine?: Unknown History of Pneumococcal: Unknown History of Hepatitis B Vaccine: Unknown Allergies Coded Allergies: Codeine (Unverified Allergy, Unknown, nauseous, 03/25/18) Home Medications Scheduled Fluticasone Propionate (Nasal) (Flonase Allergy Relief ), 1 SPRAY XAVIER DAILY Pantoprazole (Protonix), 20 MG PO BID Review of Systems Constitutional: No fever, No chills, No sweats, No weight loss, No weakness, No fatigue Respiratory: No cough, No sputum, No wheezing, No shortness of breath, No dyspnea on exertion, No dyspnea at rest Cardiovascular: + palpitations, No chest pain, No edema Abdomen: No pain, No nausea, No vomiting, No diarrhea, No constipation Musculoskeletal: No joint pain, No swelling, No calf pain Neurologic: No paralysis, No weakness, No numbness/tingling, No vertigo Endocrine: No fatigue, No excessive thirst, No excessive urination Integumentary: No rash, No itch Physical Exam Vital Signs Date Time Temp Pulse Resp B/P (MAP) Pulse Ox O2 Delivery O2 Flow Rate FiO2 03/26/18 00:48 62 19 119/74 98 Room Air 03/25/18 23:46 107 12 128/85 99 Room Air 03/25/18 23:40 108 03/25/18 23:32 89 11 98 03/25/18 23:31 128/68 03/25/18 23:17 100 5 97 03/25/18 23:16 140/75 03/25/18 23:02 136 20 03/25/18 23:01 137/77 03/25/18 23:00 118 18 137/77 100 Room Air 03/25/18 22:59 108 18 148/110 99 Room Air 03/25/18 22:58 148/110 03/25/18 22:51 122 99 03/25/18 22:48 99 Room Air 03/25/18 22:47 112 19 100 03/25/18 22:42 98 14 99 03/25/18 22:33 134/82 99 03/25/18 22:30 99 Room Air 03/25/18 22:27 146 14 03/25/18 22:25 178 03/25/18 22:14 36.8 88 18 144/85 99 Room Air General Appearance: WD/WN, no apparent distress Head: normocephalic, atraumatic Eyes: normal inspection, sclerae normal Neck: supple, no carotid bruits Respiratory/Chest: chest non-tender, lungs clear, normal breath sounds Cardiovascular: no murmur, + tachycardia, + irregularly irregular Abdomen/GI: normal bowel sounds, non tender, soft Back: no CVA tenderness Extremities/Musculoskelatal: no calf tenderness, no pedal edema Neurologic/Psych: alert, normal mood/affect, oriented x 3 Diagnostics Laboratory Results Results Past 24 Hours Test 03/25/18 22:30 Range/Units White Blood Count 8.94 4.8-10.8 K/uL Red Blood Count 5.09 4.7-6.1 M/uL Hemoglobin 16.7 14.0-18.0 g/dL Hematocrit 45.9 42-52 % Mean Corpuscular Volume 90.2 80-100 fL Mean Corpuscular Hemoglobin 32.8 25-34 pg Mean Corpuscular Hemoglobin Concent 36.4 32-36 g/dl Platelet Count 221 130-400 K/uL Mean Platelet Volume 10.6 7.4-10.4 fL Neutrophils (%) (Auto) 39.4 % Lymphocytes (%) (Auto) 45.0 % Monocytes (%) (Auto) 11.2 % Eosinophils (%) (Auto) 3.8 % Basophils (%) (Auto) 0.4 % Neutrophils # (Auto) 3.52 1.4-6.5 K/uL Lymphocytes # (Auto) 4.02 1.2-3.4 K/uL Monocytes # (Auto) 1.00 0.11-0.59 K/uL Eosinophils # (Auto) 0.34 0-0.5 K/uL Basophils # (Auto) 0.04 0-0.2 K/uL RDW Standard Deviation 39.6 36.4-46.3 fL RDW Coefficient of Variation 12.0 11.5-14.5 % Immature Granulocyte % (Auto) 0.2 % Immature Granulocyte # (Auto) 0.02 0.00-0.02 K/uL Prothrombin Time 10.7 9.0-12.0 SECONDS Prothromb Time International Ratio 1.0 0.9-1.1 Activated Partial Thromboplast Time 26.3 21.0-31.0 SECONDS Partial Thromboplastin Ratio 1.0 Sodium Level 135 136-145 mmol/L Potassium Level 3.1 3.5-5.1 mmol/L Chloride Level 100 98-107 mmol/L Carbon Dioxide Level 24 21-32 mmol/L Anion Gap 11.0 3-11 mmol/L Blood Urea Nitrogen 8 7-18 mg/dl Creatinine 1.00 0.60-1.40 mg/dl Est Creatinine Clear Calc Drug Dose 107.6 ml/min Estimated GFR () 106.4 Estimated GFR (Non- 91.8 BUN/Creatinine Ratio 8.3 10-20 Random Glucose 97 70-99 mg/dl Calcium Level 9.5 8.5-10.1 mg/dl Magnesium Level 2.0 1.8-2.4 mg/dl Total Bilirubin 0.8 0.2-1 mg/dl Direct Bilirubin 0.2 0-0.2 mg/dl Aspartate Amino Transf (AST/SGOT) 22 15-37 U/L Alanine Aminotransferase (ALT/SGPT) 23 12-78 U/L Alkaline Phosphatase 97 45-117 U/L Troponin I < 0.015 0-0.045 ng/ml Total Protein 8.6 6.4-8.2 gm/dl Albumin 4.7 3.4-5.0 gm/dl Lipase 74 73-393 U/L Thyroid Stimulating Hormone (TSH) 24.700 0.300-4.500 uIu/ml Free Thyroxine 1.27 0.80-1.60 ng/dl Impression Assessment and Plan The patient is a 42-year-old male with a past medical history of GERD that presents with palpitations that started this evening New Onset Atrial Fibrillation - possibly secondary to significant hypothyroidism - Initially given 20mg Cardizem Bolus and then placed on Cardizem drip in ED - Discontinued Cardizem drip and give 60mg PO Cardizem once admitted to the hospital - Cardizem 30mg PO q6h - Cardizem 10mg IV q4h PRN for HR > 110 - NSS + 20meq K @ 100mls/hr - Admit to Telemetry - [id number] of [id number] --> No need for AC - Echo from November shows normal EF of 65-70% with no inducible ischemia Hypothyroidism - TSH of 24.7 - Synthroid 75mcg qAM - Continue to monitor TSH Hypokalemia - Potassium of 3.1 - Potassium Chloride 40mg PO Once in ED - NSS + 20meq of K @ 100mls/hr - Daily BMP GERD - Protonix 40mg p.o. daily to replace 20 mg p.o. twice daily. DVT - SCD Code Status - Full Resuscitation Attending addendum: I have physically seen this patient, have supervised the medical residents activities, and agree with the H&P unless as otherwise noted. Assessment and Plan: New onset paroxysmal atrial fibrillation with rapid ventricular response-- The patient will be admitted to telemetry for serial cardiac enzymes, serial EKG's, and cardiac rhythm monitoring. Cardizem orders and IV fluids as noted above. To receive oral and IV potassium supplementation. Chads vascular score 0, therefore no need for anticoagulation or aspirin. Consult cardiology in the a.m. Hypothyroidism-- TSH 24.7. Add a free T4 and free T3 level. Due to likely contribution to A. fib, with start Synthroid 75 mcg p.o. every morning beginning tomorrow morning. GERD-- He has been on pantoprazole 20 mg p.o. twice daily. Change pantoprazole to 40 mg p.o. daily as inpatient. Magnesium levels normal. If potassium is difficult to remain normalized in the outpatient setting, consider changing pantoprazole to famotidine and Carafate. Remainder of orders as noted above. Advanced Directives Existing Advance Directive: No Existing Living Will: No Existing Power of Oil Well Directional Surveyor: No Resuscitation Status Full Code VTE Prophylaxis Will order VTE Prophylaxis: Yes Social Service Consult None Apply Resident Tracking Resident Involvement: Resident Care Provided Care Provided: Adult Hospital Medicine
[2018-03-26] MEDS ORDERED: NSS + 20MEQ KCL 1000ML 1,000 ML IV SCH (02:30)
[2018-03-26] MEDS: DILTIAZEM HCL 30 MG TAB PO SCH ×2 (05:53→11:42)
[2018-03-26] MEDS ORDERED: LEVOTHYROXINE 75 MCG TAB PO SCH (06:00)
[2018-03-26 06:08] LABS: BASO % 0.5 %; BASO ABS # 0.03 K/uL (0-0.2); EOS % 2.8 %; EOS ABS # 0.18 K/uL (0-0.5); HEMATOCRIT 40.4 % (42-52); HEMOGLOBIN 14.3 g/dL (14.0-18.0); IG# 0.01 K/uL (0.00-0.02); LYMPH ABS # 1.93 K/uL (1.2-3.4); MEAN CELL VOLUME 91.2 fL (80-100); MEAN CORPUSCULAR HEMOGLOBIN 32.3 pg (25-34); MEAN CORPUSCULAR HGB CONC 35.4 g/dl (32-36); MEAN PLATELET VOLUME 10.1 fL (7.4-10.4); MONO % 10.9 %; NEUT % 55.6 %; NEUT ABS # 3.58 K/uL (1.4-6.5); PLATELET COUNT 211 K/uL (130-400); RED CELL DISTRIBUTION WIDTH CV 12.1 % (11.5-14.5); RED CELL DISTRIBUTION WIDTH SD 40.4 fL (36.4-46.3); WHITE BLOOD COUNT 6.43 K/uL (4.8-10.8)
[2018-03-26 06:44] LABS: CALCIUM 8.2 mg/dl (8.5-10.1); CREATININE 0.88 mg/dl (0.60-1.40); POTASSIUM 4.4 mmol/L (3.5-5.1)
--- NOTE | 2018-03-26 06:50 | Family Medicine Progress Note ---
Progress Note Date of Service Mar 26, 2018. Subjective Pt evaluation today including: conversation w/ patient, conversation w/ family , physical exam, chart review, lab review, review of studies Pain: None PO Intake: Good Voiding: no voiding problems Shaheen Rajput is a 42yo M on HD#1 admitted for palpitations and HR to the 160' s. He was placed on a cardizem drip and converted to NSR. Cardizem drip was d/ armani last night and he received an evening dose of 60mg PO Cardizem. Cardizem was held this morning for bradycardia. Overnight tele showed NSR in mid-50's, some PACs, and no runs of Afib. He had a stress test last November which was normal. He feels better this morning. He reports he had no episodes of chest pain, palpitations, difficulty breathing, or sweating overnight. He has no pain this morning. He endorses 1 lb/wk weight loss since November due to diet/exercise. He notes his diet has been very potassium restricted for several weeks. No fatigue this morning. He is eating well without nausea/vomiting. No problems with diarrhea/constipation today. No history of CHF, hypertension, diabetes, or stroke. He has had one episode of racing heart this past February, but attributes it to 3 cups of coffee. He reports the feeling was much more mild and he did not experience the level of chest discomfort he did with his episode of Afib. He had a negative stress echo is November 13 shortness of breath and chest pain ultimately attributed to reflux. Constitutional: No fever, No chills, No sweats, No weakness, No fatigue Eyes: No worsening of vision Respiratory: No cough, No wheezing, No shortness of breath, No dyspnea at rest Cardiovascular: No chest pain, No orthopnea, No palpitations Abdomen: No nausea, No vomiting, No diarrhea, No constipation Musculoskeletal: No swelling Neurologic: No weakness, No numbness/tingling Endo: No fatigue Skin: No rash Medications Current Inpatient Medications Medications (Trade) Dose Ordered Sig/Wilda Route Start Time Stop Time Status Last Admin Dose Admin Potassium Chloride/Sodium Chloride 1,000 ml @ 100 mls/hr Q10H IV 03/26/18 02:30 04/25/18 02:29 03/26/18 02:22 100 MLS/HR Acetaminophen (Tylenol Tab) 650 mg Q4H PRN PO 03/26/18 00:45 04/25/18 00:44 Ondansetron HCl (Zofran Inj) 4 mg Q6H PRN IV 03/26/18 00:45 04/25/18 00:44 Pantoprazole Sodium 40 mg/ Syringe 10 ml @ 5 mls/min DAILY@11 IV 03/26/18 11:00 04/25/18 10:59 Diltiazem HCl (Cardizem Tab) 30 mg Q6 PO 03/26/18 06:00 04/25/18 05:59 Diltiazem HCl (Cardizem Inj) 10 mg Q4H PRN IV 03/26/18 01:00 04/25/18 00:59 Levothyroxine Sodium (Synthroid Tab) 75 mcg DAILYBB PO 03/26/18 06:00 04/25/18 06:59 03/26/18 06:00 75 MCG Objective Vital Signs Date Time Temp Pulse Resp B/P (MAP) Pulse Ox O2 Delivery O2 Flow Rate FiO2 03/26/18 04:09 36.5 60 18 112/69 (83) 98 Room Air 03/26/18 04:00 Room Air 03/26/18 03:39 53 03/26/18 01:47 36.4 66 20 109/64 100 Room Air 03/26/18 01:21 36.8 59 19 113/69 95 03/26/18 00:48 62 19 119/74 98 Room Air 03/25/18 23:46 107 12 128/85 99 Room Air 03/25/18 23:40 108 03/25/18 23:32 89 11 98 03/25/18 23:31 128/68 03/25/18 23:17 100 5 97 03/25/18 23:16 140/75 03/25/18 23:02 136 20 03/25/18 23:01 137/77 03/25/18 23:00 118 18 137/77 100 Room Air 03/25/18 22:59 108 18 148/110 99 Room Air 03/25/18 22:58 148/110 03/25/18 22:51 122 99 03/25/18 22:48 99 Room Air 03/25/18 22:47 112 19 100 03/25/18 22:42 98 14 99 03/25/18 22:33 134/82 99 8/12/18 22:30 99 Room Air 03/25/18 22:27 146 14 03/25/18 22:25 178 03/25/18 22:14 36.8 88 18 144/85 99 Room Air Physical Exam General Appearance: no apparent distress Eyes: normal inspection (EoM intact. Central and peripheral visual quiñonez fully intact to confrontation without field cuts. No nystagmus. Cover/uncover test normal.), PERRL, sclerae normal ENT: hearing grossly normal Neck: no JVD, no carotid bruits, trachea midline Respiratory/Chest: lungs clear, normal breath sounds, no respiratory distress, no accessory muscle use Cardiovascular: regular rate, rhythm, no edema, no gallop, no JVD, no murmur Abdomen: normal bowel sounds, non tender, soft Extremities: normal inspection, no pedal edema Neurologic/Psychiatric: no motor/sensory deficits, alert, normal mood/affect, oriented x 3 Skin: normal color, warm/dry, no rash Laboratory Results 03/26/18 05:55 Red Blood Count 4.43, Mean Corpuscular Volume 91.2, Mean Corpuscular Hemoglobin 32.3, Mean Corpuscular Hemoglobin Concent 35.4, Mean Platelet Volume 10.1, Neutrophils (%) (Auto) 55.6, Lymphocytes (%) (Auto) 30.0, Monocytes (%) (Auto) 10.9, Eosinophils (%) (Auto) 2.8, Basophils (%) (Auto) 0.5, Neutrophils # (Auto ) 3.58, Lymphocytes # (Auto) 1.93, Monocytes # (Auto) 0.70, Eosinophils # (Auto ) 0.18, Basophils # (Auto) 0.03 03/26/18 05:55 Test 03/25/18 22:30 03/26/18 05:55 Prothrombin Time 10.7 SECONDS (9.0-12.0) Prothromb Time International Ratio 1.0 (0.9-1.1) Activated Partial Thromboplast Time 26.3 SECONDS (21.0-31.0) Partial Thromboplastin Ratio 1.0 Magnesium Level 2.0 mg/dl (1.8-2.4) Total Bilirubin 0.8 mg/dl (0.2-1) Direct Bilirubin 0.2 mg/dl (0-0.2) Aspartate Amino Transf (AST/SGOT) 22 U/L (15-37) Alanine Aminotransferase (ALT/SGPT) 23 U/L (12-78) Alkaline Phosphatase 97 U/L (45-117) Troponin I < 0.015 ng/ml (0-0.045) Total Protein 8.6 gm/dl (6.4-8.2) Albumin 4.7 gm/dl (3.4-5.0) Lipase 74 U/L (73-393) Thyroid Stimulating Hormone (TSH) 24.700 uIu/ml (0.300-4.500) Free Thyroxine 1.27 ng/dl (0.80-1.60) White Blood Count 6.43 K/uL (4.8-10.8) Red Blood Count 4.43 M/uL (4.7-6.1) Hemoglobin 14.3 g/dL (14.0-18.0) Hematocrit 40.4 % (42-52) Mean Corpuscular Volume 91.2 fL (80-100) Mean Corpuscular Hemoglobin 32.3 pg (25-34) Mean Corpuscular Hemoglobin Concent 35.4 g/dl (32-36) Platelet Count 211 K/uL (130-400) Mean Platelet Volume 10.1 fL (7.4-10.4) Neutrophils (%) (Auto) 55.6 % Lymphocytes (%) (Auto) 30.0 % Monocytes (%) (Auto) 10.9 % Eosinophils (%) (Auto) 2.8 % Basophils (%) (Auto) 0.5 % Neutrophils # (Auto) 3.58 K/uL (1.4-6.5) Lymphocytes # (Auto) 1.93 K/uL (1.2-3.4) Monocytes # (Auto) 0.70 K/uL (0.11-0.59) Eosinophils # (Auto) 0.18 K/uL (0-0.5) Basophils # (Auto) 0.03 K/uL (0-0.2) RDW Standard Deviation 40.4 fL (36.4-46.3) RDW Coefficient of Variation 12.1 % (11.5-14.5) Immature Granulocyte % (Auto) 0.2 % Immature Granulocyte # (Auto) 0.01 K/uL (0.00-0.02) Anion Gap 7.0 mmol/L (3-11) Est Creatinine Clear Calc Drug Dose 122.3 ml/min Estimated GFR () 121.9 Estimated GFR (Non- 105.2 BUN/Creatinine Ratio 8.0 (10-20) Calcium Level 8.2 mg/dl (8.5-10.1) Assessment and Plan Shaheen is a 42yo M with a PMHx of GERD presenting with an episode of Afib now in NSR s/p cardiazem drip in context of elevated TSH with normal T4 and hypokalemia. New Onset AFib - CHADS2-VASC = 0. No indication for anticoagulation at this time. - Normal sinus rhythm since last night. Cardizem held this morning for bradycardia. - Recent stress echo showing normal EF with no ischemia or rhythm abnormality Hypokalemia - Serum K normalized to 4.4 from 3.1 today - D/c IV fluids + K. He has good PO intake. - Oral Klor 20meq for serum K <4.0 - Daily BMP Elevated TSH - TSH 24.7, up from <8 last month in context of a normal free T4. Concern for hypothyroid vs. pituitary adeno vs. RTH vs. Assay interference - Repeat TSH/T4, alpha subunit TSH. - IGH, prolactin measurements - Synthroid 75mcg qAM GERD - Continue pantoprazole 40mg PO daily DVT - SCD Code Status - Full ADDENDUM: 03/26/28 @ 1649HRS - New Onset AFib - Pt OK for discharge with flecanide pill in pocket approach. Appreciate cardiology recs - Per cards likely vagally mediated afib with low risk for adverse prognosis. Structurally normal heart per his echo in November. - Elevated TSH - Given that he has been clinically euthyroid with a normal T4 despite elevated TS recommended stopping synthroid. - Prolactin, Anti-TPO antibodies ordered and pt will f/u as outpatient Resident Physician Supervision Note: I was present with Dr. Neves during the history and exam. I discussed the case with the resident and agree with the findings and plan as documented in the note. Any exceptions or clarifications are listed here: Please see discharge summary of same date for attestation. Documented By: Uche Grey Discharge planning: home with home health, uncertain Resident Tracking Resident Involvement: Resident Care Provided Care Provided: Adult Hospital Medicine
[2018-03-26] MEDS ORDERED: PANTOprazole INJ 40 MG in SYRINGE 0 ML IV SCH (11:00)
--- NOTE | 2018-03-26 14:43 | Cardiology Consultation ---
Cardiology Consultation Date of Consultation: Mar 26, 2018. Requesting Physician: Matilda Reason for Consultation: atrial fibrillation Pt evaluation today including: conversation w/ patient, physical exam, chart review, lab review, review of studies, review of inpatient medication list, conversation w/ attending History of Present Illness The patient is a 42-year-old gentleman with a history of atypical chest pain and gastroesophageal reflux disease who experienced the onset of palpitations last evening. The patient states that he was woken from sleep by sense of a racing heartbeat. He ambulates to the bathroom where he had 2 bowel movements. He does wear a heart rate monitor and noted heart rate in the 160s. With the symptoms and the known elevated heart rate hip proceeded to [facility] Emergency Room his discovered to have atrial fibrillation and associated rapid ventricular response. He was started on some diltiazem but eventually converted back to sinus rhythm without any additional intervention. Patient states that his symptoms of palpitations resolved at that time. He did not appear to have associated chest pain or dizziness. He did not have any significant dyspnea. He cannot recall having similar symptoms in the past. He is an active individual who was accustomed to walking several miles and occasionally playing soccer in the park. He does not report symptoms of chest discomfort associated with these activities. He does struggle recently with atypical chest pains did undergo cardiac evaluation which included stress testing. He has eventual felt to have gastroesophageal reflux disease in the symptoms did resolve with a change in his diet and addition of a proton pump inhibitor. He does not have limiting dyspnea. He has not report orthopnea or paroxysmal nocturnal dyspnea. He did not report snoring. He claims to sleep well at night. Past Medical/Surgical History Gastroesophageal reflux disease Hypothyroidism Family History No premature coronary disease Social History Smoking Status: Never Smoker History of Alcohol Use: No Works at the [employer] Review of Systems Respiratory: No cough, No wheezing, No shortness of breath, No dyspnea at rest Cardiac: No chest pain, No orthopnea, No palpitations Occasional cold intolerance. He has lost some weight intentionally due to changes in diet. No notable edema. Energy level appears to be normal. All Other Systems: Reviewed and Negative Allergies Coded Allergies: Codeine (Unverified Allergy, Unknown, nauseous, 03/25/18) Medications Current Inpatient Medications Medications (Trade) Dose Ordered Sig/Wilda Route Start Time Stop Time Status Last Admin Dose Admin Acetaminophen (Tylenol Tab) 650 mg Q4H PRN PO 03/26/18 00:45 04/25/18 00:44 Ondansetron HCl (Zofran Inj) 4 mg Q6H PRN IV 03/26/18 00:45 04/25/18 00:44 Pantoprazole Sodium 40 mg/ Syringe 10 ml @ 5 mls/min DAILY@11 IV 03/26/18 11:00 04/25/18 10:59 03/26/18 11:23 5 MLS/MIN Diltiazem HCl (Cardizem Tab) 30 mg Q6 PO 03/26/18 06:00 04/25/18 05:59 Diltiazem HCl (Cardizem Inj) 10 mg Q4H PRN IV 03/26/18 01:00 04/25/18 00:59 Levothyroxine Sodium (Synthroid Tab) 75 mcg DAILYBB PO 03/26/18 06:00 04/25/18 06:59 03/26/18 06:00 75 MCG Physical Exam Vital Signs Past 12 Hours Date Time Temp Pulse Resp B/P (MAP) Pulse Ox O2 Delivery O2 Flow Rate FiO2 03/26/18 12:00 Room Air 03/26/18 11:15 36.7 59 20 128/71 (90) 97 Room Air 03/26/18 08:00 Room Air 03/26/18 07:04 36.8 58 18 111/68 (82) 98 Room Air 03/26/18 04:09 36.5 60 18 112/69 (83) 98 Room Air 03/26/18 04:00 Room Air 03/26/18 03:39 53 The patient is alert and oriented. Mood and affect appeared normal. He answered all questions appropriately. HEENT: Pupils are equal and reactive to light and accommodation. Extraocular movements are intact. The sclerae are anicteric. Neuro: Cranial nerves intact Neck: Patient's neck is supple. He has palpable carotid pulses bilaterally without bruits on auscultation. There is no evidence of jugular venous distention. The thyroid is not enlarged. Lungs: Clear to auscultation bilaterally. He has good air movement without use of accessory muscles. No rales wheezes or rhonchi. Cardiac: Heart demonstrates a regular rate and rhythm. Normal S1 and S2. No murmurs on examination. Pulses: The patient has palpable radial pulses bilaterally that are equal in intensity Extremities: There was no evidence of hypoperfusion. There is no cyanosis or clubbing. There is no edema. Skin: I did not appreciate any rashes on examination today. Data Laboratory Results: Last 24 Hours Test 03/25/18 22:30 03/26/18 05:55 White Blood Count 8.94 K/uL 6.43 K/uL Red Blood Count 5.09 M/uL 4.43 M/uL Hemoglobin 16.7 g/dL 14.3 g/dL Hematocrit 45.9 % 40.4 % Mean Corpuscular Volume 90.2 fL 91.2 fL Mean Corpuscular Hemoglobin 32.8 pg 32.3 pg Mean Corpuscular Hemoglobin Concent 36.4 g/dl 35.4 g/dl Platelet Count 221 K/uL 211 K/uL Mean Platelet Volume 10.6 fL 10.1 fL Neutrophils (%) (Auto) 39.4 % 55.6 % Lymphocytes (%) (Auto) 45.0 % 30.0 % Monocytes (%) (Auto) 11.2 % 10.9 % Eosinophils (%) (Auto) 3.8 % 2.8 % Basophils (%) (Auto) 0.4 % 0.5 % Neutrophils # (Auto) 3.52 K/uL 3.58 K/uL Lymphocytes # (Auto) 4.02 K/uL 1.93 K/uL Monocytes # (Auto) 1.00 K/uL 0.70 K/uL Eosinophils # (Auto) 0.34 K/uL 0.18 K/uL Basophils # (Auto) 0.04 K/uL 0.03 K/uL RDW Standard Deviation 39.6 fL 40.4 fL RDW Coefficient of Variation 12.0 % 12.1 % Immature Granulocyte % (Auto) 0.2 % 0.2 % Immature Granulocyte # (Auto) 0.02 K/uL 0.01 K/uL Prothrombin Time 10.7 SECONDS Prothromb Time International Ratio 1.0 Activated Partial Thromboplast Time 26.3 SECONDS Partial Thromboplastin Ratio 1.0 Sodium Level 135 mmol/L 141 mmol/L Potassium Level 3.1 mmol/L 4.4 mmol/L Chloride Level 100 mmol/L 110 mmol/L Carbon Dioxide Level 24 mmol/L 24 mmol/L Anion Gap 11.0 mmol/L 7.0 mmol/L Blood Urea Nitrogen 8 mg/dl 7 mg/dl Creatinine 1.00 mg/dl 0.88 mg/dl Est Creatinine Clear Calc Drug Dose 107.6 ml/min 122.3 ml/min Estimated GFR () 106.4 121.9 Estimated GFR (Non- 91.8 105.2 BUN/Creatinine Ratio 8.3 8.0 Random Glucose 97 mg/dl 88 mg/dl Calcium Level 9.5 mg/dl 8.2 mg/dl Magnesium Level 2.0 mg/dl Total Bilirubin 0.8 mg/dl Direct Bilirubin 0.2 mg/dl Aspartate Amino Transf (AST/SGOT) 22 U/L Alanine Aminotransferase (ALT/SGPT) 23 U/L Alkaline Phosphatase 97 U/L Troponin I < 0.015 ng/ml Total Protein 8.6 gm/dl Albumin 4.7 gm/dl Lipase 74 U/L Thyroid Stimulating Hormone (TSH) 24.700 uIu/ml Free Thyroxine 1.27 ng/dl Imaging: Chest x-ray did not demonstrate any acute cardiopulmonary disease. EKG: Initial EKG demonstrated atrial fibrillation and rapid ventricular response. There were some ST and T-wave depressions. Current EKG demonstrates sinus bradycardia Telemetry reviewed: Currently sinus rhythm Assessment & Plan 1. Atrial fibrillation: Paroxysmal. The patient is atrial fibrillation is likely vagally mediated. He has relatively low resting heart rate is event occurred during the evening while sleeping. This is not portend the same adverse prognosis is most forms of atrial fibrillation. The recurrence rate is also lower. Do not believe there was any other clear trigger. He is not appear to be at high risk for sleep apnea based on history. He is not obese. He reportedly has a structurally normal heart and normal stress test recently. He has not have a diagnosis of hypertension. There is not appear to be any hereditary form atrial fibrillation. He is hypothyroid which is less commonly associated with atrial fibrillation then hyperthyroidism. I think his slow heart rate predispose him to atrial fibrillation. His chads Vasc score is 0. He does not require anticoagulation or aspirin for stroke prophylaxis. Given the solitary episode of relatively brief duration without associated symptoms, I do not feel he requires any prophylaxis or medical therapy at the time of discharge. If he has frequent episodes in the future we could consider medical therapy such as a pill in the pocket flecainide approach or even daily antiarrhythmic, possibly dofetilide given its reverse use dependence. Catheter based therapy would also be a reasonable option for recurrent episodes an otherwise healthy individual with a structurally normal heart.
[2018-03-26] MEDS ORDERED: SYN75 PO (15:25)
[2018-03-26] MEDS ORDERED: FLEC150T PO (15:25)
--- NOTE | 2018-03-26 15:45 | Discharge Instructions ---
Discharge Instructions Date of Service Mar 26, 2018. Admission Reason for Admission: New Onset A-Fib Discharge Discharge Diagnosis / Problem: New Onset A-Fib, elevated TSH Discharge Goals Goal(s): Decrease discomfort, Learn about illness, Diagnostic testing, Prevent Disease Progression Activity Recommendations Activity Limitations: per Instructions/Follow-up section . Instructions / Follow-Up Instructions / Follow-Up You were seen in the hospital for palpitations and found to have an episode of new onset atrial fibrillation which converted to normal rhythm after admission. You have been prescribed a new medication flecainide. This should be used ONLY as needed. If you have a recurrence of palpitation take 2 pills (300mg total) of flecainide which should improve symptoms within one hour. If symptoms worsen or do not improve please call Dr. Haq's office at [phone], or if you are concerned go to the Emergency Department. Please follow-up with Dr. Haq and your PCP Dr. Calhoun within two weeks. You should be called to confirm your appointment for followup. If you do not receive a call, please confirm with Dr. Haq's office at [phone] and with your Primary Care provider Dr. Calhoun. If you experience chest pain, shortness of breath, lightheadedness, weakness, dizziness, fainting or confusion please contact your health care provider or go to the Emergency Department. Repeat lab work will be performed at your followup visit with Dr. Calhoun. Some labs related to your thyroid function were drawn today prior to your discharge, the results of these labs will be forwarded to Dr. Calhoun and Dr. Haq who will discuss the results with you. Current Hospital Diet Patient's current hospital diet: Regular Diet Discharge Diet Recommended Diet: Regular Diet Pending Studies Studies pending at discharge: yes List of pending studies: Anti-TPO Prolactin Medical Emergencies . Who to Call and When: Medical Emergencies: If at any time you feel your situation is an emergency, please call 911 immediately. . Non-Emergent Contact Non-Emergency issues call your: Primary Care Provider, Training Developer Call Non-Emergent contact if: you have any medication questions . . "Provider Documentation" section prepared by Norm Neves. .
--- NOTE | 2018-03-26 15:53 | Discharge Summary ---
Discharge Summary Date of Service Mar 26, 2018. Discharge Summary Admission Date: Mar 26, 2018 at 00:39 Discharge Date: Mar 26, 2018 Discharge Disposition: Home Principal Diagnosis: New Onset Atrial Fibrilliation Problems/Secondary Diagnoses: Elevated TSH, Hypokalemia Immunizations: Have You Had Influenza Vaccine: Unknown History of Tetanus Vaccine?: Unknown History of Pneumococcal: Unknown History of Hepatitis B Vaccine: Unknown Procedures: CHEST ONE VIEW PORTABLE CLINICAL HISTORY: Chest pain. COMPARISON STUDY: Chest radiograph December 07, 2017. FINDINGS: Lung volumes are normal. There is no pneumothorax or pleural effusion. There is no consolidation or evidence for pulmonary edema. Cardiac size is normal. Mediastinal contours are normal. The appearance of the chest is unchanged. IMPRESSION: No acute cardiopulmonary findings. Electronically signed by: Amador Vernon M.D. 03/25/2018 11:03 PM Dictated Date/Time: 03/25/2018 11:02 PM Consultations: Cardiology Medication Reconciliation New Medications: Flecainide Acetate (Flecainide Acetate) 150 Mg Tab 300 MG PO DIRECTED PRN for palpitations for 7 Days, #14 TAB 0 Refills Take 2 tablets (300mg total) for palpitations no more than once daily. Continued Medications: Fluticasone Propionate (Nasal) (Flonase Allergy Relief Ch) 50 Mcg/Act Spr 1 SPRAY XAVIER DAILY Pantoprazole (Protonix) 20 Mg Tab 20 MG PO BID, #30 TAB Discharge Exam Refer to progress note Hospital Course Shaheen Rajput is a 42yo M on admitted 03/25/2018 for palpitations and HR to the 160's and subsequently found to be in AFib. He had no previous history of atrial fibrilliation, but had had a stress echo in November 2017 for shortness of breath/chest pain ultimately ruled to be due to reflux. He was placed on a cardizem drip on admit and converted to NSR. Cardizem drip was d/armani 03/25/18 and he received an evening dose of 60mg PO Cardizem. His cardizem the morning of 03/26/18 on was held for bradycardia. He continued to have sinus bradycardia in the mid-50's with some PACs but no runs of atrial fibrillation. Troponins were negative, creatinine was normal, CBC was normal. During admission his TSH was elevated to 24 with a normal T4. He was initially placed on Synthroid 75mcg although was clinically euthyroid before and during admission with a normal T4 so Synthroid was not continued at discharge. He was hypokalemic on admit, his potassium returned to within normal limits after one dose of oral potassium repletion and once bag of [id number]. Electrolytes were otherwise normal. Cardiology was consulted and saw him on 03/26, their impression was that his Afib was likely vagally mediated with a structurally normal heart and with a low risk of adverse prognosis. His CHADS2-Vasc score was 0 with no smoking history; anticoagulation was not indicated. He was felt to be stable and safe for discharge with a [id number] approach with flecainide 300mg. He will followup within two weeks with cardiology and his PCP. Anti-TPO and prolactin labs were drawn prior to d/c with results to be followed up on as outpatient. Resident Physician Supervision Note: I was present with Dr. Neves during the history and exam. I discussed the case with the resident and agree with the findings and plan as documented in the note. SUBJECTIVE He feels well this morning. He converted overnight, and has felt well since that time. EXAM Appears well. Non toxic. Afebrile. CV: RRR Lungs: CTA Ext: No edema. IMPRESSION & PLAN 1) Episode of A-fib, resolved CHADS score is zero, so no need to anticoagulate. Discussed a [id number]-pocket approach if he has recurrence. 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 With normal T4, supplementing may only increase his risk for a-fib; while delaying supplementation until definitive diagnosis would not be harmful. Will check thyroid antibodies. He is already set up for repeat thyroid studies in early April. Documented By: Uche Grey Total Time Spent: Greater than 30 minutes This includes examination of the patient, discharge planning, medication reconciliation, and communication with other providers. Total time was 45 minutes. Discharge Instructions Please refer to the electronic Patient Visit Report (Discharge Instructions) for additional information. Follow-Up Followup to [facility] within 2 weeks Followup to PCP Dr. Calhoun Family [facility] within 2 weeks Additional Copies To Dino Haq, DO; Radha Calhoun M.D.
[2018-03-28 14:17] LABS: MICROSOMAL AB 349 IU/ML (<9)
== END 2018-03-26 18:00 | disposition home or self-care (01) | DRG 309 ==
LOC: C.EDB 22:13 → C.2T 03-26 00:39 → ENRESERV 03-26 01:14
PROVIDERS: ADMIT Student in an Organized Health Care Education/Training Program; ATTEND Family Medicine
DX: I48.0 Paroxysmal atrial fibrillation (principal); E87.1 Hypo-osmolality and hyponatremia; E03.9 Hypothyroidism, unspecified; K21.9 Gastro-esophageal reflux disease without esophagitis; Z79.899 Other long term (current) drug therapy